=== PATIENT | male | born 1985 | race Caucasian/White ===

== ENCOUNTER → 2021-10-06 | Outpatient (CLI) | payer OTHER | LOC: EMI 16:00 → MRI 16:00 | DX: S46.211A Strain of muscle, fascia and tendon of other parts of biceps, right arm, initial encounter (principal) | CPT/HCPCS: 73218 ==

== ENCOUNTER → 2021-10-24 | Day surgery (SDC) | payer OTHER ==
[~2021-10-24] MED LIST: HYDROCODON-ACE1 EAC2 PO
== END | disposition home or self-care (01) ==
LOC: OR 06:23
DX: S46.211A Strain of muscle, fascia and tendon of other parts of biceps, right arm, initial encounter (principal); Z20.822 Contact with and (suspected) exposure to COVID-19; Z86.16 Personal history of COVID-19; X50.0XXA Overexertion from strenuous movement or load, initial encounter
CPT/HCPCS: 73080; 76000; J0690; J1100; J1885; J2001; J2250; J2405; J2704; J2795; J3010; J7120